=== PATIENT | female | born 1980 | race Hispanic/Latino ===

== ENCOUNTER 2016-06-21 08:44 | Emergency (ER) | payer MEDICAID ==
[2016-06-21 08:50] VITALS: BP 124/80; PULSE 73; RESP 18; TEMP 97.6; O2SAT 100
--- NOTE | 2016-06-21 10:36 | C.PDOC ---
History Of Present Illness 36 year old female patient reports of abscess in left inner thigh for 3 days. Patient states that the abscess drained out with white pus and blood yesterday. Patient reports multiple abscess in the past, but denies fever, nausea, vomiting diarrhea, rash, or any other complaints. Chief Complaint (Nursing): Abnormal Skin Integrity History Per: Patient History/Exam Limitations: no limitations Onset/Duration Of Symptoms: Days Current Symptoms Are (Timing): Still Present Quality Of Symptoms: Draining Severity: Mild Recent travel outside of the [place]: No Past Medical History Reviewed: Historical Data, Nursing Documentation, Vital Signs Vital Signs: Last Vital Signs Temp 97.6 F 06/21/16 08:49 Pulse 73 06/21/16 08:49 Resp 18 06/21/16 08:49 BP 124/80 06/21/16 08:49 Pulse Ox 100 06/21/16 11:18 - Medical History PMH: Anxiety, Back Problems Family History: States: Unknown Family Hx - Social History Hx Tobacco Use: Yes Hx Alcohol Use: Yes Hx Substance Use: No - Immunization History Hx Tetanus Toxoid Vaccination: No Hx Influenza Vaccination: No Hx Pneumococcal Vaccination: No Review Of Systems Except As Marked, All Systems Reviewed And Found Negative. Constitutional: Negative for: Fever, Chills Gastrointestinal: Negative for: Nausea, Vomiting, Diarrhea Skin: Positive for: Other (Abscess left inner thigh) Physical Exam - Physical Exam Appears: Non-toxic, No Acute Distress Skin: Warm, Dry, Other (Medial aspect of the left upper thigh had 1 cm indurated abscess. Small openning, no active drainage, mildy warm to touch.) Head: Atraumatic, Normacephalic Cardiovascular: Rhythm Regular, No Murmur Respiratory: No Rales, No Rhonchi, No Wheezing Gastrointestinal/Abdominal: Soft, No Tenderness Neurological/Psych: Oriented x3, Normal Speech, Normal Cognition ED Course And Treatment O2 Sat by Pulse Oximetry: 100 (Room air) Pulse Ox Interpretation: Normal Medical Decision Making Medical Decision Making: Plans: -Reassess and disposition Patient was instructed to keep area clean and dry. Patient was given antibiotics and to follow up with PMD it problems persist. Disposition - Disposition Referrals: José Miguel Dill, [Non-Staff] - Disposition: HOME/ ROUTINE Disposition Time: 09:15 Condition: GOOD Additional Instructions: Thank you for letting us take care of you today. Your provider was Dr. Read. You were treated for a thigh abscess. The emergency medical care you received today was directed at your acute symptoms. If you were prescribed any medication, please fill it and take as directed. It may take several days for your symptoms to resolve. Return to the Emergency Department if your symptoms worsen, do not improve, or if you have any other problems. Please contact your doctor or call one of the physicians/clinics you have been referred to that are listed on the Patient Visit Information form that is included in your discharge packet. Bring any paperwork you were given at discharge with you along with any medications you are taking to your follow up visit. Our treatment cannot replace ongoing medical care by a primary care provider (PCP) outside of the emergency department. Thank you for allowing the [facility] team to be part of your care today. Keep area clean and dry at all times. Follow up with your primary doctor in 3-4 days for a wound check. Return for any concerns. Prescriptions: Sulfamethoxazole/Trimethoprim [Bactrim DS 800 mg-160 mg] 1 tab PO BID #14 tab Cephalexin [cephalexin] 500 mg PO BID #14 cap Instructions: Abscess (ED) - Clinical Impression Clinical Impression: Abscess - Scribe Statement The provider has reviewed the documentation as recorded by the Scribe Munira restrepo All medical record entries made by the Turner were at my direction and personally dictated by me. I have reviewed the chart and agree that the record accurately reflects my personal performance of the history, physical exam, medical decision making, and the department course for this patient. I have also personally directed, reviewed, and agree with the discharge instructions and disposition.
== END 2016-06-21 09:25 | disposition home or self-care (01) ==
LOC: C.ER 08:44
DX: L02.416 Cutaneous abscess of left lower limb (principal); Z87.891 Personal history of nicotine dependence